=== PATIENT | female | born 1990 | race African-American/Black ===

== ENCOUNTER 2018-08-05 09:06 | Day surgery (SDC) | payer MEDICAID, SELFPAY ==
[2018-08-05] VITALS (7 sets, daily range): BP systolic 135–155; BP diastolic 80–95; PULSE 49–74; RESP 16; TEMP 36.4–36.7; O2SAT 95–100; BMI 43.7
--- NOTE | 2018-08-05 | TISS_PTH ---
PATIENT: ANIA GARCIA LOC: [facility] – [place] U#:[id number] AGE/SX: 28/F ROOM: RE08/05/[address]: Dr. Adamaris Avendano MD : [id number] BED: DIS: 08/05/2018 SPEC #: [id number] RECD: 08/05/18 13:59 STATUS: SHANTEL OKSANA #: [id number] JOSEFINA: 08/05/18 00:[address]: Adamaris Avendano DEPT: SURGICAL PATHOLOGY RECD BY: Kleber Diaz ENTERED: 08/05/18 14:00 SP TYPE: Tissue Bx OT DR: No Primary Care Phys Tissues: Perineum, NOS Procedures: Surgery Specimen Level IV HEADER OPERATION: Diagnostic laparoscopy with peritoneal biopsy PRE-OP DIAGNOSIS: Chronic pelvic pain TISSUE SUBMITTED: Peritoneal biopsy MICROSCOPIC DIAGNOSIS Peritoneal biopsy: A fragment of dense fibroconnective tissue, negative for endometriosis. SJ:lina 08/06/18 MICROSCOPIC DESCRIPTION Slides are reviewed. GROSS DESCRIPTION Received in fixative is one container labeled with the patient's name and designated peritoneal biopsy. The specimen consists of a piece of damon soft tissue measuring 0.5 x 0.3 x 0.2 cm. The entire specimen is submitted in one cassette. / SJ:lina 08/05/18 TC:5 CPT: 97961
[2018-08-05 09:33] LABS: Internal QC Validated? YES +Cl - CLEAR BKGD
[2018-08-05 09:39] LABS: Pregnancy, Urine Negative Negative
--- NOTE | 2018-08-05 11:59 | DCINST_ITS ---
Discharge Diet: No Restrictions - Increase fluid intake for the next 48 hours. Discharge Activity: Return to Normal Activity, May Drive - when you are no longer taking pain/narcotic meds., May Shower, May Take a Tub Bath - in 7 days Additional Activity Instructions:: Ambulate often the next week after surgery. Nothing in the vagina for 5 days. Call your doctor if your incision/area has: Continuous Slow Oozing, Sudden Increased Bleeding, Increased Pain/ Swelling, Increased Redness, Foul Smelling Discharge Call your doctor if you observe: Fever of 101 or Higher Cleanse incision/area with: Soap & Water, - - Your incisions have skin glue, it can get wet Allergies/Adverse Reactions: Allergies lactose Adverse Reaction (Verified 07/29/18 10:21) Other gassy Medications to take at Discharge Ferrous Sulfate [Iron] 325 mg PO DAILY 07/29/18 Pnv95/Ferrous Fumarate/FA [ Formula Tablet] 1 each PO QHS 07/29/18 Ibuprofen [Motrin] 600 mg PO Q8 PRN #45 tablet 08/05/18 Oxycodone HCl/Acetaminophen [Percocet 5-325] 1 - 2 tablet PO Q8 PRN 4 Days #14 tablet 08/05/18 The following prescriptions were given: Ibuprofen [Motrin] 600 mg PO Q8 PRN #45 tablet PRN Reason: Pain Oxycodone HCl/Acetaminophen [Percocet 5-325] 1 - 2 tablet PO Q8 PRN 4 Days #14 tablet PRN Reason: Moderate-Severe pain Primary Care Physician: Care Physician,No Primary [Primary Care Provider] - Test Results: Test results from this visit will be discussed in further detail at your follow- up appointment, if applicable. Please Follow Up With: Adamaris Avendano MD - [phone] When: 2-4 weeks or as needed
[2018-08-05] MEDS: Lubricating Jelly 60 GM Tube 30 GM TOPICAL (12:30)
[2018-08-05] MEDS: Bupivacaine Mpf 0.5% 30 ML VIAL (12:30)
--- NOTE | 2018-08-05 12:39 | PCM.OPRPT ---
Report of Operation Date of Procedure: 08/05/18 Pre-Operative Diagnosis: chronic pelvic pain Post-Operative Diagnosis: same Surgery/Procedure Performed:: Diagnotic laparascopy with peritoneal biopsy elevator troubleshooter: None Anesthesiologist: Nayely Munson Special Medications: none Specimen's removed: peritoneal biopsy Drains: none Estimated Blood Loss (mL): 10 Fluids Replaced: 1000cc LR Description of Procedure: The patient was taken to the operating room where she was prepped and draped in the dorsolithotomy position. A weighted speculum was placed in the vagina and the anterior lip of the cervix was grasped with a tenaculum. Uterus sounded to 8 cm. the Gwen uterine manipulator was placed and the remainder of the instruments were removed from the vagina. Attention was turned to the abdomen. All port sites were infiltrated with 0.5% Marcaine before skin incisions were made. A 5 mm [intraumbilical] incision was made. The anterior abdominal wall was tented up with 2 towel clamps while a 5 mm blade less trocar and sleeve were [directly inserted]. Intraperitoneal placement was confirmed with the laparoscope. The pneumoperitoneum was created and the underlying abdominal contents were intact. The patient was placed in Trendelenburg. Left lower quadrant port was placed lateral to the inferior epigastric vessels under direct visualization. The bowel was swept out of the way. There were normal tubes and ovaries. There were no significant intraperitoneal adhesions. There was one small filmy adhesion near where her left lower quadrant port had been placed during her previous ovarian cystectomy. The upper abdomen was normal. The left ovary had a slight indentation in it but no adhesions. There is no obvious endometriosis. After some exploration, there appeared to be some possible small red petechiae on some the peritoneal surfaces. I suspected these were due to my exploration and manipulation of the pelvic organs. However, decision was made to proceed with peritoneal biopsy of 1 of these areas on the right uterosacral ligament. A second left sided port was placed approximately 2 cm cephalad to the previous one again lateral to the inferior epigastric vessels. This was placed under direct visualization. I then used the monopolar scissors to take down that small filmy adhesion that was less than 1 cm wide of the omentum that was near the left port site. This was hemostatic. I then used the monopolar scissors to biopsy the peritoneum of the left uterosacral ligament. It was tented out with a grasper and the scissors were used to remove a small section of peritoneum. Site was hemostatic. Specimen was brought out through the port. The lateral ports were removed under direct visualization and no active bleeding was noted. The pneumoperitoneum was released. The skin incisions were closed with Monocryl suture in a subcuticular fashion and skin glue . The vaginal instruments were removed and the vaginal sweep was completed by me. The procedure was performed by me. All sponge and needle counts were correct and the patient was taken to the recovery room in stable condition. Grafts/Implants Used: none - Complications none - Admit VTE Documentation VTE Present on Admission: No VTE Mechan Device Prophylaxis: SCD's VTE Pharm Prophylaxis ordered?: No Reason prophylaxis not ordered:: Procedure Not Indicated
== END 2018-08-05 14:39 | disposition home or self-care (01) ==
LOC: SDC 09:07 → AC 09:09
PROVIDERS: Referring Provider Obstetrics & Gynecology; Visit Provider Obstetrics & Gynecology
PROC: (CPT 49320; principal; 2018-08-05 10:45)
DX: R10.2 Pelvic and perineal pain (principal); G89.29 Other chronic pain; D64.9 Anemia, unspecified; G40.909 Epilepsy, unspecified, not intractable, without status epilepticus
CPT/HCPCS: 00840; 49321; 81025; 88305; J7120; J2405